=== PATIENT | female | born 2005 | race Hispanic/Latino ===

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

== ENCOUNTER 2023-11-12 11:11 | Emergency (ER) | payer BC, MEDICAID ==
[~2023-11-12] VITALS: Ht 152.4 cm; Wt 56.2 kg
[2023-11-12 11:30] VITALS: BP 115/60; PULSE 94; RESP 16
[2023-11-12 12:06] LABS: APPEARANCE,URINE CLOUDY (CLEAR); BILIRUBIN,URINE NEGATIVE (NEGATIVE); COLOR,URINE LIGHT-YELLOW (YELLOW); GLUCOSE, URINE (UA) NEGATIVE (NEGATIVE); KETONES,URINE NEGATIVE (NEGATIVE); LEUKOCYTE ESTERASE ,URINE NEGATIVE Leu/uL (NEGATIVE); NITRATE,URINE NEGATIVE (NEGATIVE); OCCULT BLOOD,URINE NEGATIVE (NEGATIVE); PROTEIN,URINE NEGATIVE (NEGATIVE); UROBILINOGEN,URINE 0.2 mg/dL (0.2-1.0)
[2023-11-12 12:07] LABS: ADD UA MICROSCOPIC YES
[2023-11-12 12:14] LABS: MUCUS,URINE RARE LPF (None Seen); RBC,URINE 0-1 /HPF (0-1); SQUAMOUS EPITHELIAL CELL,UR MANY /HPF (0-2)
[2023-11-12 12:15] LABS: BACTERIA,URINE Rare /HPF (None Seen)
[2023-11-12] MEDS ORDERED: CEPH500T PO (13:26)
== END 2023-11-12 13:51 | disposition home or self-care (01) ==
LOC: EDH 11:11
DX: O23.42 Unspecified infection of urinary tract in pregnancy, second trimester (principal); N39.0 Urinary tract infection, site not specified; Z3A.17 17 weeks gestation of pregnancy
CPT/HCPCS: 76805; 81001; 87088

== ENCOUNTER 2023-11-22 13:40 | Emergency (ER) | payer BC, MEDICAID ==
[~2023-11-22 13:40] MED LIST: CEPH500T PO
== END 2023-11-22 14:55 | disposition left against medical advice (07) ==
LOC: EDH 13:40
DX: R10.9 Unspecified abdominal pain (principal); Z53.21 Procedure and treatment not carried out due to patient leaving prior to being seen by health care provider

== ENCOUNTER 2025-01-23 06:14 | Emergency (ER) | payer BC, MEDICAID ==
[~2025-01-23] VITALS: Ht 152.4 cm; Wt 56.2 kg
[2025-01-23] MEDS: teTANUS/diphthERIA TOXOID [ADULT] 0.5 ML VIAL IM ONE (06:53)
[2025-01-23 07:14] VITALS: BP 116/65; PULSE 80; RESP 16; TEMP 97.1; O2SAT 100
--- NOTE | 2025-01-23 07:26 | ERN ---
General Chief Complaint: Laceration/Avulsion Stated Complaint: C/O LACERATION TO FOREHEAD Time Seen by MD: 06:17 Source: patient History of Present Illness Initial Comments 19-year-old female whose bed is quite high off the floor got hit in the left fo rehead by a ceiling fan when she stood up this morning on her bed. She comes in for incision closure. Allergies: Coded Allergies: No Known Allergies (Unverified Allergy, Unknown, 11/12/23) Home Meds Active Scripts Cephalexin (Cephalexin) 500 Mg Tablet, 500 MG PO BID for 7 Days, #14 TAB 0 Refills Prov:NATHEN JETER Nereida [employer]ING [employer]ATOR 11/12/23 Past Medical History Past Medical History: No Pertinent History Past Surgical History: None Social History Social History: Negative, Lives with family Female( History) LMP: December 26, 2024 : 1 Para: 0 Aborts: 0 ROS Dictation No headache no loss of consciousness. Review of systems is negative except for the laceration on her left forehead. Physical Exam Head/Face Trauma: Yes Face Comment Laceration to left forehead goes all the way down to the [place]. MDM A simple laceration please see the procedure notes for details. Patient's last tetanus shot was 5-6 years ago. I will give her a tetanus shot. She does not need antibiotics. ED Course Orders Procedure Category Date Status Time Tetanus,Diphtheria PHA 01/23/25 Complete Tox [Adult] (Diphther 06:30 Current Medications Medications (Trade) Dose Ordered Sig/Joaquín Route PRN Reason Start Time Stop Time Status Last Admin Dose Admin Tetanus/ Diphtheria Toxoids Adsorbed (DiphthERIA-teTANUS TOXOID [ADULT]/ DECAVAC) 0.5 ml ONCE ONCE IM 01/23/25 06:30 01/23/25 06:31 DC 01/23/25 06:53 Vital Signs Date Time Temp Pulse Resp B/P (MAP) Pulse Ox O2 Delivery O2 Flow Rate FiO2 01/23/25 07:14 97.2 80 16 116/65 100 Room Air* 0 21 01/23/25 06:16 97.2 91 20 122/77 Room Air Laceration/Wound Repair Laceration/Wound Repair : Wound Location: head Wound Length (cm): 2 Wound's Depth, Shape: into muscle, linear Wound Explored: clean Betadine Prep?: Yes Anesthesia: 1% Lidocaine Wound Debrided: minimal Wound Repaired With: sutures Suture Size/Type: 5:0 Number of Sutures: 6 Sterile Dressing Applied?: Yes DX & DISP Disposition: Discharge Departure Impression: Primary Impression: Laceration of forehead without complication Condition: Stable Additional Instructions: Okay to take showers after one day. Do not take soaking baths do not immerse the head under the water in activities such as swimming. Avoid saunas avoid hot tubs avoid soaking baths. Please return if the incision becomes red inflamed swollen and more painful. The sutures can come out after one week. You can return to the emergency room for suture removal or Referrals: WAYNE CONTRERAS DO (PCP) GALLITO RIVERA MD Jan 23, 2025 07:26
== END 2025-01-23 07:35 | disposition home or self-care (01) ==
LOC: EDH 06:14
DX: S01.81XA Laceration without foreign body of other part of head, initial encounter (principal); W18.09XA Striking against other object with subsequent fall, initial encounter; Y93.89 Activity, other specified; Y92.89 Other specified places as the place of occurrence of the external cause; Y99.8 Other external cause status
CPT/HCPCS: 12011; 90471; 90714; 99283